=== PATIENT | male | born 1965 | race Caucasian/White ===

== ENCOUNTER 2017-06-17 04:47 | Emergency (ER) | payer SELFPAY ==
[~2017-06-17] VITALS: Ht 170.2 cm; Wt 58.8 kg
[2017-06-17 04:48] VITALS: BP 110/74
== END 2017-06-17 07:37 | disposition home or self-care (01) ==
LOC: ED 06:19
DX: L03.113 Cellulitis of right upper limb (principal); L03.115 Cellulitis of right lower limb; L03.114 Cellulitis of left upper limb; L03.116 Cellulitis of left lower limb; F17.200 Nicotine dependence, unspecified, uncomplicated
CPT/HCPCS: 99283